=== PATIENT | male | born 1930 | race Caucasian/White ===

== ENCOUNTER 2019-10-01 11:52 | Inpatient (IN) ==
[2019-10-01 12:47] LABS: Basophils % 0.2 % (0.0-0.8); Eosinophils # 0.2 10*3/uL (0.0-0.87); Eosinophils % 2.7 % (0.00-10.9); Immature Granulocytes % 0.1 %; Immature Granulocytes Absolute 0.01 #; Lymphocytes # 3.8 10*3/uL (1.4-4.0); Lymphocytes % 45.1 % (21.2-54.2); Mean Corpuscular HGB Conc 32.6 GM/DL (32-36); Mean Corpuscular Volume 93.7 FL (87-102); Mean Platelet Volume 10.7 FL (9.6-12.0); Monocytes % 6.6 % (1.7-12.7); Neutrophils % 45.3 % (38.7-73.9); Platelet Count 174 T/CUMM (130-400); Red Blood Count 4.59 MC/CUMM (3.8-5.5); White Blood Count 8.4 T/CUMM (4-12)
[2019-10-01 13:09] LABS: Albumin 3.6 G/DL (3.4-5.0); Calcium 8.8 MG/DL (8.5-10.1); Osmolality,Calculated 277.5 MOS/KG (273-304); Total Protein 6.1 G/DL (6.4-8.3)
[2019-10-01 14:08] LABS: Apearance,Urine CLEAR (Clear); Bacteria,Urine Occasional /HPF (Few); Bilirubin,Urine Negative (Negative); Blood, Urine Negative (Negative); Glucose,Urine (UA) Negative (Negative); Hyaline Casts,Urine 6 /LPF (0-3); Ketones,Urine Negative (Negative); Mucus,Urine Occasional /LPF (Occasional); Nitrite,Urine Negative (Negative); Protein,Urine Negative; Squamous Epithelial Cell,Urine Occasional /HPF (0-10); Urine Color Yellow (Yellow); Urine Specific Gravity 1.017 (1.001-1.035); WBC,Urine 5 /HPF (0-6)
[2019-10-01] MEDS ORDERED: cefTRIAXone 1,000 MG in SODIUM CHLORIDE 0.9% 100 ML IV STA (15:13)
[2019-10-01] MEDS ORDERED: SODIUM CHLORIDE 0.9% 1,000 ML IV STA (15:21)
[2019-10-01] MEDS ORDERED: ACETAMINOPHEN 325 MG TABLET PO PRN (15:23)
[2019-10-01] MEDS ORDERED: HYDROCORTISONE 1% CREAM 28 GM TUBE TOP PRN (15:26)
[2019-10-01] MEDS ORDERED: CYANOCOBALAMIN 1000 MCG/1 ML VIAL IM SCH (15:30)
[2019-10-01] MEDS ORDERED: cefTRIAXone 1,000 MG in SYRINGE 1 EACH IV SCH (15:30)
[2019-10-01] MEDS: DEXTROSE 5% NACL 0.45% 1,000 ML IV SCH (17:23)
[2019-10-01] MEDS ORDERED: INFLUENZA VIRUS VACCINE 0.5 ML SYRINGE IM ONE (17:40)
[2019-10-01] MEDS: MEMANTINE 10 MG TABLET PO SCH (20:50)
[2019-10-01] MEDS ORDERED: OLANZapine 2.5 MG TABLET PO SCH ×2 (21:00)
[2019-10-02] MEDS: DEXTROSE 5% NACL 0.45% 1,000 ML IV SCH ×2 (00:56→08:02)
[2019-10-02 05:47] LABS: Calcium 8.2 MG/DL (8.5-10.1); Osmolality,Calculated 281.3 MOS/KG (273-304)
[2019-10-02] MEDS ORDERED: LEVOTHYROXINE 50 MCG TABLET PO SCH (06:30)
[2019-10-02] MEDS: MEMANTINE 10 MG TABLET PO SCH (08:03)
[2019-10-02] MEDS ORDERED: CITALOPRAM 20 MG TABLET PO SCH (09:00)
[2019-10-02] MEDS ORDERED: PANTOPRAZOLE 40 MG TABLET PO SCH (09:00)
[2019-10-02] MEDS ORDERED: CYANOCOBALAMIN 1000 MCG/1 ML VIAL IM SCH (09:00)
[2019-10-02 12:36] VITALS: BP 106/55
[2019-10-08] MEDS ORDERED: ERGOCALCIFEROL 50,000 UNIT CAPSULE PO SCH (09:00)
== END 2019-10-02 13:49 | disposition home or self-care (01) | DRG 682 ==
LOC: EDBD → EDUNIT# → N.ED 11:52 → N.EDINP 15:23 → SUATTDRO 15:23 → N.5E 15:55
PROVIDERS: ADMIT Family Medicine; ATTEND Family Medicine